=== PATIENT | male | born 1980 | race Asian ===

== ENCOUNTER 2020-10-16 07:43 | Outpatient (REF) | payer OTHER, SELFPAY ==
[2020-10-16 08:28] LABS: MANUAL DIFF FLAG NO
[2020-10-16 08:40] LABS: Basophils Percent Auto 0.2 % (0-2); Eosinophils Absolute Auto 0.1 X10*3/uL (0.0-0.4); Eosinophils Percent Auto 1.7 % (0-4); Hematocrit 40.2 % (42-52); Hemoglobin 13.5 g/dl (14.0-18.0); Imm Gran Abs Auto 0.01 X10*3/uL (0.00-0.03); Imm Gran Pct Auto 0.2 % (0.0-0.4); Lymphocytes Absolute Auto 1.7 X10*3/uL (1.2-4.9); Lymphocytes Percent Auto 40.5 % (20-40); Mean Corpuscular HGB Conc 33.6 g/dl (31.0-36.0); Mean Corpuscular Hemoglobin 27.7 pg (27.0-33.0); Mean Corpuscular Volume 82.5 fL (80-98); Mean Platelet Volume 11.7 fL (9.4-12.4); Monocytes Absolute Auto 0.3 X10*3/uL (0.1-1.2); Monocytes Percent Auto 7.8 % (2-11); Neutrophils Absolute Auto 2.1 X10*3/uL (2.0-8.3); Neutrophils Percent Auto 49.6 % (45-73); Platelet Count 172 X10*3/uL (160-400); Red Blood Count 4.87 X10*6/uL (4.60-5.80); White Blood Count 4.2 X10*3/uL (4.8-10.8)
[2020-10-16 09:58] LABS: Alanine Aminotransferase 21 U/L (0-40); Albumin Level 4.5 g/dL (3.5-5.0); Alkaline Phosphatase 62 U/L (39-117); Anion Gap 10 (12-20); Aspartate Amino Transferase 21 U/L (5-37); Bilirubin Total 0.8 mg/dL (0.0-1.0); Blood Urea Nitrogen 13 mg/dL (9-16); Calcium 9.8 mg/dL (8.4-10.2); Carbon Dioxide 29 mmol/L (22-29); Chloride 104 mmol/L (96-108); Cholesterol 229 mg/dL; Estimated Glomerular Filt Rate > 60; Glucose Fasting 105 mg/dL (60-99); HDL Cholesterol 54 mg/dL; LDL Cholesterol Calculated 137 mg/dl; Sodium 139 mmol/L (135-145); Total Protein 7.5 g/dL (6.5-8.0); Triglycerides 190 mg/dL
== END 2020-10-16 07:44 | disposition home or self-care (01) ==
LOC: HO.LAB 07:43
PROVIDERS: PCP Internal Medicine; Visit Provider Internal Medicine
DX: Z00.00 Encounter for general adult medical examination without abnormal findings (principal); Z13.31 Encounter for screening for depression; M79.672 Pain in left foot
CPT/HCPCS: 36415; 80053; 80061; 85025

== ENCOUNTER 2021-02-22 10:00 | Outpatient (REF) | payer OTHER, SELFPAY ==
[2021-02-22 10:54] LABS: Cholesterol 228 mg/dL; HDL Cholesterol 49 mg/dL; LDL Cholesterol Calculated 149 mg/dl; Triglycerides 151 mg/dL
== END 2021-02-22 10:01 | disposition home or self-care (01) ==
LOC: HO.LAB 10:00
PROVIDERS: PCP Internal Medicine; Visit Provider Internal Medicine
DX: E78.2 Mixed hyperlipidemia (principal)
CPT/HCPCS: 36415; 80061

== ENCOUNTER 2021-11-21 07:37 | Outpatient (REF) | payer OTHER, SELFPAY ==
[2021-11-21 08:06] LABS: MANUAL DIFF FLAG NO
[2021-11-21 08:34] LABS: Basophils Percent Auto 0.7 % (0-2); Eosinophils Absolute Auto 0.1 X10*3/uL (0.0-0.4); Eosinophils Percent Auto 2.1 % (0-4); Hematocrit 42.5 % (42.0-52.0); Hemoglobin 14.3 g/dl (14.0-18.0); Imm Gran Abs Auto 0.01 X10*3/uL (0.00-0.03); Imm Gran Pct Auto 0.2 % (0.0-0.4); Lymphocytes Absolute Auto 1.8 X10*3/uL (1.2-4.9); Lymphocytes Percent Auto 41.5 % (20-40); Mean Corpuscular HGB Conc 33.6 g/dl (31.0-36.0); Mean Corpuscular Volume 83.2 fL (80.0-98.0); Monocytes Absolute Auto 0.4 X10*3/uL (0.1-1.2); Monocytes Percent Auto 8.2 % (2-11); Neutrophils Percent Auto 47.3 % (45-73); Platelet Count 171 X10*3/uL (160-400); Red Blood Count 5.11 X10*6/uL (4.60-5.80); Red Cell Distribution Width 13.3 % (11.0-16.0); White Blood Count 4.3 X10*3/uL (4.8-10.8)
[2021-11-21 09:03] LABS: Alanine Aminotransferase 33 U/L (0-40); Albumin Level 4.4 g/dL (3.5-5.0); Alkaline Phosphatase 65 U/L (39-117); Anion Gap 13 (12-20); Aspartate Amino Transferase 25 U/L (5-37); Bilirubin Total 0.5 mg/dL (0.0-1.0); Blood Urea Nitrogen 14 mg/dL (9-16); Calcium 9.4 mg/dL (8.4-10.2); Carbon Dioxide 24 mmol/L (22-29); Chloride 107 mmol/L (96-108); Cholesterol 233 mg/dL; Estimated Glomerular Filt Rate > 60; Glucose Random 100 mg/dL (60-115); HDL Cholesterol 48 mg/dL; LDL Cholesterol Calculated 159 mg/dl; Potassium 4.8 mmol/L (3.3-5.1); Sodium 139 mmol/L (135-145); Total Protein 7.5 g/dL (6.5-8.0); Triglycerides 133 mg/dL
== END 2021-11-21 07:38 | disposition home or self-care (01) ==
LOC: HO.LAB 07:37
PROVIDERS: PCP Internal Medicine; Visit Provider Internal Medicine
DX: Z00.00 Encounter for general adult medical examination without abnormal findings (principal); Z13.31 Encounter for screening for depression; M54.50 Low back pain, unspecified; E78.00 Pure hypercholesterolemia, unspecified
CPT/HCPCS: 36415; 80053; 80061; 85025

== ENCOUNTER 2024-03-17 07:06 | Outpatient (REF) | payer OTHER, SELFPAY ==
[2024-03-17 08:19] LABS: Alanine Aminotransferase 23 U/L (0-40); Albumin Level 4.4 g/dL (3.5-5.0); Alkaline Phosphatase 64 U/L (39-117); Anion Gap 11 (12-20); Aspartate Amino Transferase 19 U/L (5-37); Bilirubin Total 0.7 mg/dL (0.0-1.0); Blood Urea Nitrogen 16 mg/dL (9-16); Calcium 9.7 mg/dL (8.4-10.2); Carbon Dioxide 27 mmol/L (22-29); Chloride 108 mmol/L (96-108); Cholesterol 252 mg/dL (<200); Estimated Glomerular Filt Rate > 60; Glucose Random 107 mg/dL (60-115); HDL Cholesterol 52 mg/dL (>40); LDL Cholesterol Calculated 154 mg/dL (<100); Potassium 4.2 mmol/L (3.3-5.1); Sodium 142 mmol/L (135-145); Total Protein 7.6 g/dL (6.5-8.0); Triglycerides 234 mg/dL (<150)
== END 2024-03-17 07:07 | disposition home or self-care (01) ==
LOC: HO.LAB 07:06
PROVIDERS: PCP Internal Medicine; Visit Provider Internal Medicine
DX: Z00.00 Encounter for general adult medical examination without abnormal findings (principal); E78.00 Pure hypercholesterolemia, unspecified; Z13.31 Encounter for screening for depression; Z68.24 Body mass index [BMI] 24.0-24.9, adult
CPT/HCPCS: 36415; 80053; 80061

== ENCOUNTER 2024-07-02 07:45 | Outpatient (REF) | payer OTHER, SELFPAY ==
[2024-07-02 08:24] LABS: Alanine Aminotransferase 36 U/L (0-40); Albumin Level 4.3 g/dL (3.5-5.0); Alkaline Phosphatase 67 U/L (39-117); Anion Gap 8 (12-20); Aspartate Amino Transferase 27 U/L (5-37); Bilirubin Total 0.7 mg/dL (0.0-1.0); Blood Urea Nitrogen 12 mg/dL (9-16); Calcium 9.1 mg/dL (8.4-10.2); Carbon Dioxide 28 mmol/L (22-29); Chloride 110 mmol/L (96-108); Cholesterol 121 mg/dL (<200); Estimated Glomerular Filt Rate > 60; Glucose Random 102 mg/dL (60-115); HDL Cholesterol 50 mg/dL (>40); LDL Cholesterol Calculated 52 mg/dL (<100); Potassium 4.2 mmol/L (3.3-5.1); Sodium 142 mmol/L (135-145); Total Protein 7.6 g/dL (6.5-8.0); Triglycerides 96 mg/dL (<150)
== END 2024-07-02 07:46 | disposition home or self-care (01) ==
LOC: HO.LAB 07:45
PROVIDERS: PCP Internal Medicine; Visit Provider Internal Medicine
DX: Z00.00 Encounter for general adult medical examination without abnormal findings (principal); E78.00 Pure hypercholesterolemia, unspecified; M19.042 Primary osteoarthritis, left hand; R07.9 Chest pain, unspecified
CPT/HCPCS: 36415; 80053; 80061

== ENCOUNTER 2024-07-06 13:00 | Outpatient (AMB) | payer OTHER, SELFPAY ==
--- NOTE | 2024-07-06 13:04 | A.OFFVIS_ITS ---
Vital Signs 07/06/24 13:06 Height 5 ft 6 in Weight 130 lb 1.164 oz BMI 21.0 BP 130/74 Blood Pressure Location Lt brachial Position Sitting Pulse 77 Intake Visit Reasons: [employer]PERVIS[employer]/Dr. Laird/Chest pain,abn EKG,germaine. cholestero Intake Note: New for chest pain abnormal ekg and high cholesterol c/o a constant pressure on left side of chest [employer] Wafer Required: No Dispensary Attendant: Dispensary Attendant Present Accompanied by: Spouse Allergies No Known Allergies Allergy (Verified 07/06/24 13:10) Medication List - Last Reconciled 07/06/24 by Chadwick Jane MD atorvastatin 20 mg PO DAILY HPI Comments Details: Thank you for referring Khris in cardiology consultation today for precordial chest pain. He is a pleasant 43-year-old male with prior history of hyperlipidemia which now is on statin therapy with well optimized LDL in the last few months. Patient about 3 months ago while playing golf and/or exercising and doing pushups started developing left-sided chest pain. Patient then cut down his activity level and symptoms improved although he says when he pays attention to it sometimes still feels the discomfort. Symptoms are described as mild pressure. He says since then he has been skiing and doing other activity and has not noticed any significantly increased symptoms at this point time. However given his history he was concerned and he was referred here for further evaluation. He denies any other prior cardiovascular history. Denies any strong family history for premature coronary artery disease. Denies any history of hypertension, diabetes. [facility] Medical History (Updated 07/06/24 @ 13:33 by Chadwick Jane MD) Hyperlipidemia Family History Father Diabetes Hypercholesterolemia Mother Hypercholesterolemia Social History Patient Tobacco Use Status: Former Tobacco user Review of Systems Const Denies chills, Denies daytime sleepiness, Denies fatigue, Denies fever(s), Denies frequent falls, Denies poor appetite, Denies snoring, Denies stops breathing during sleep, Denies weakness, Denies weight gain and Denies weight loss Eyes Denies loss of vision ENT Denies dizziness and Denies hearing loss Card Reports chest pain, Denies claudication, Denies leg edema, Denies lightheadedness, Denies palpitations, Denies dyspnea, Denies dyspnea on exertion and Denies orthopnea Resp Denies cough, Denies excessive phlegm production, Denies dyspnea, Denies dyspnea on exertion, Denies snoring and Denies wheezing GI Denies abdominal pain, Denies hematochezia, Denies change in bowel habits, Denies nausea and Denies vomiting Denies dysuria and Denies urinary frequency Musc Denies arthralgias, Denies muscle weakness, Denies numbness and Denies other (frequent falls) Skin/Breast Denies nail changes and Denies rash Neuro Denies Abnormal speech present, Denies dizziness, Denies frequent falls, Denies loss of vision, Denies memory loss, Denies numbness and Denies weakness Psych Denies depression and Denies memory loss Endo Denies fatigue and Denies palpitations Asa/Lymph Reports easy bruising and Reports other (anemia) Aller/Immun Denies wheezing Physical Exam Vital Signs: Last Vital Signs Pulse 77 07/06/24 13:06 BP 130/74 07/06/24 13:06 BMI result Body Mass Index 21.0 Const General: cooperative, comfortable, no acute distress, alert, awake and Physically active Nutritional Appearance: average body habitus Orientation/consciousness: patient oriented x3 Limitations: no limitations HEENT Head: Yes normocephalic and Yes atraumatic Neck Neck: Yes trachea midline, Yes supple and Yes no JVD Carotids: no bruits Resp Effort & Inspection: normal respiratory effort Auscultation: clear to auscultation bilaterally Cardio Jugular venous distension: no JVD Palpation: normal PMI Rate: regular rate Rhythm: regular rhythm Heart sounds: S1 normal heart sound present, S2 normal heart sound present, no click, no gallops, no murmurs and no rubs GI Auscultation: normal bowel sounds Skin General skin exam: no rashes or lesions noted Neuro General: patient oriented x3 and no focal motor deficits Speech: No Abnormal speech present Extrem General: Yes no clubbing, cyanosis or edema Psych Appearance: grossly normal Office Procedures EKG Details: EKG shows normal sinus rhythm with rightward axis with nonspecific T wave changes [id number], Complete Assessment & Plan Assessment & Plan (1) Atypical chest pain: Code(s): R07.89 - Other chest pain Category: Medical Plan: Atypical chest pain in this young male with precordial chest pain started with intense exercise but still present when he pays attention to it. Symptoms are somewhat atypical but could represent myocardial ischemia. Would suggest a stress echocardiogram given his baseline abnormal EKG. Recommend this to be performed in near future. If this is negative possibly represents musculoskeletal chest pain and was discussed with him. (2) Hyperlipidemia: Code(s): E78.5 - Hyperlipidemia, unspecified Category: Medical Plan: Hyperlipidemia which is [id number], extremely well optimized on current statin therapy. Discussed with him to continue the same. We discussed lifetime risk of atherosclerotic events inpatient with hyperlipidemia which will definitely be mitigated with statin therapy although comes at risk for long-term statin therapy associated risk. Will suggest a coronary calcium score to assess for presence of atherosclerosis and if he does that would definitely continue statin therapy for rn long term care and also further help with risk stratification. Will follow with him if need be. Thank you for allowing me to partake in his care Orders: Orders CA echo stress exercise Today R07.89 - Other chest pain CT Coronary Calcium Score 4 Weeks E78.5 - Hyperlipidemia, unspecified Coding Level of Care Code New Pt Level 4 (70501) Complex EM visit Add On G2211 Diagnoses Atypical chest pain R07.89 Hyperlipidemia E78.5 CPT Codes EKG - CPT: 49832-[id number], Complete ([id number])
[2024-07-06 13:06] VITALS: BP 130/74; PULSE 77; BMI 21.0
== END 2024-07-06 13:35 | disposition home or self-care (01) ==
PROVIDERS: PCP Internal Medicine; Visit Provider Internal Medicine Cardiovascular Disease
DX: R07.89 Other chest pain (principal); E78.5 Hyperlipidemia, unspecified
CPT/HCPCS: 93010; 99204

== ENCOUNTER → 2024-07-06 13:00 | Outpatient (BNVA) | payer OTHER, SELFPAY | PROVIDERS: PCP Internal Medicine; Visit Provider Internal Medicine Cardiovascular Disease | DX: R07.89 Other chest pain (principal); E78.5 Hyperlipidemia, unspecified | CPT/HCPCS: 93005 ==

== ENCOUNTER → 2024-07-23 11:04 | Outpatient (REF) | payer OTHER, SELFPAY ==
--- NOTE | 2024-07-23 11:07 | CA_ITS ---
Acquisition Time: 2024-07-23 11:11:35 Total Exercise Time: 00:09:00 Test Indications: Abnormal ECG CP Medications: ATORVASTATIN Protocol: LOLA Max HR: 160 BPM 90% of Pred: 177 BPM Max BP: 134/70 mmHG Max Work Load: 10.1 METS Exercise Stress Test with exercise 9 mins of Lola Protocol, achieving 88% MPHR, with reports of constant left sided 2/10 chest heaviness at baseline, no change with exercise, without any arrythmias, with normotensive response to exercise. Without EKG changes meeting criteria for ischemia. Echo images obtained at rest and post peak exercise. Definity contrast utilized. Test reviewed with Dr. Caruso. Referred By: Chadwick Jane Electronically Signed By: Giacomo Hernández
== END ==
LOC: HO.CARD 11:04
PROVIDERS: PCP Internal Medicine; Visit Provider Internal Medicine Cardiovascular Disease
DX: R07.89 Other chest pain (principal)

== ENCOUNTER → 2024-07-23 11:07 | Outpatient (BNV) | payer OTHER, SELFPAY | PROVIDERS: PCP Internal Medicine | DX: R94.31 Abnormal electrocardiogram [ECG] [EKG] (principal); R07.2 Precordial pain | CPT/HCPCS: 93016; 93018; 93350; 93352 ==